=== PATIENT | female | born 1990 | race African-American/Black ===

== ENCOUNTER 2021-06-18 10:24 | Observation (INO) | payer OTHER ==
[~2021-06-18] VITALS: Ht 172.7 cm; Wt 79.4 kg
[2021-06-18] MEDS: TERBUTALINE SULFATE 1 MG/ML 1ML VIAL SC SCH ×2 (11:39→12:21)
== END 2021-06-18 13:29 | disposition home or self-care (01) ==
LOC: UNDOADMOB 10:24 → EEVIPCON 10:24 → LDRP 10:24 → UNDODISOB 13:29
PROVIDERS: ADMIT Obstetrics & Gynecology; ATTEND Obstetrics & Gynecology
DX: O99.891 Other specified diseases and conditions complicating pregnancy (principal); M54.9 Dorsalgia, unspecified; O26.893 Other specified pregnancy related conditions, third trimester; R10.2 Pelvic and perineal pain; R10.30 Lower abdominal pain, unspecified; Z3A.33 33 weeks gestation of pregnancy
CPT/HCPCS: 59025; 76805; 81002; 94760; 96372; G0378; J3105

== ENCOUNTER 2021-07-05 18:45 | Observation (INO) | payer OTHER ==
[~2021-07-05] VITALS: Ht 172.7 cm; Wt 225.0 kg
[2021-07-05] MEDS ORDERED: LACTATED RINGER'S 1,000 ML IV SCH (19:00)
[2021-07-05] MEDS ORDERED: LACTATED RINGER'S 1,000 ML IV ONE (19:00)
[2021-07-05] MEDS: TERBUTALINE SULFATE 1 MG/ML 1ML VIAL SC SCH ×2 (19:23→20:24)
[2021-07-05] MEDS ORDERED: BETAMETHASONE ACET (30mg/5ml) 5ml Vial 6mg/ml IM ONE (20:00)
== END 2021-07-05 21:50 | disposition home or self-care (01) ==
LOC: LDRP 18:45 → UNDOADMOB 18:45 → LDRP 18:57 → UNDODISOB 21:50
PROVIDERS: ADMIT Obstetrics & Gynecology Obstetrics; ATTEND Obstetrics & Gynecology Obstetrics
DX: O47.03 False labor before 37 completed weeks of gestation, third trimester (principal); O62.9 Abnormality of forces of labor, unspecified; Z3A.36 36 weeks gestation of pregnancy
CPT/HCPCS: 59025; 81002; 94760; 96360; 96361; 96372; G0378; J3105